=== PATIENT | female | born 1960 | race Caucasian/White ===

== ENCOUNTER 2022-11-01 08:21 | Day surgery (SDC) | payer BC ==
--- NOTE | 2022-10-23 15:00 | NUR ---
SPOKE WITH BOTH PT AND DR MONTOYA OFFICE REGARDING P/O PAIN MEDS AND NEED TO GET APPROVAL FROM PT'S PAIN [place], INFO GIVEN TO DR. Nick Salinas M.A. TO FOLLOW UP.
[2022-10-23 16:20] LABS: BASOPHILS % (AUTO) 0.5 % (0-1); BILIRUBIN,URINE NEGATIVE (Neg); CLARITY,URINE CLOUDY (Clear); COLOR,URINE YELLOW (Yellow); EOSINOPHILS # (AUTO) 0.1 X10'3 (0-0.9); EOSINOPHILS % (AUTO) 2.2 % (0-6); GLUCOSE, URINE NEGATIVE (Neg); KETONES,URINE NEGATIVE (Neg); LEUKOCYTE ESTERASE ,URINE MODERATE (Neg); LYMPHOCYTES # (AUTO) 2.1 X10'3 (1.1-4.8); LYMPHOCYTES % (AUTO) 32.6 % (21-51); MEAN CORPUSCULAR HEMOGLOBIN 28.6 PG (27.0-31.0); MEAN CORPUSCULAR HGB CONC 33.2 g/dL (33.0-36.5); MEAN CORPUSCULAR VOLUME 86.3 FL (78-98); MEAN PLATELET VOLUME 8.8 FL (7.4-10.4); MONOCYTES # (AUTO) 0.3 X10'3 (0-0.9); MONOCYTES % (AUTO) 5.3 % (2-12); NEUTROPHILS # (AUTO) 3.8 X10'3 (1.8-7.7); NEUTROPHILS % (AUTO) 59.4 % (42-75); NITRITES, URINE POSITIVE (Neg); OCCULT BLOOD,URINE TRACE-INTACT (Neg); PH,URINE 5.5 (4.8-8.0); PRE OP HEMATOCRIT 41.6 % (35.0-45.0); PRE OP HEMOGLOBIN 13.8 g/dL (12.0-16.0); PRE OP PLATELET COUNT 231 X10'3 (140-440); PRE OP WHITE BLOOD COUNT 6.3 10'3 (4.8-10.8); PROTEIN,URINE NEGATIVE (Neg); RED BLOOD COUNT 4.82 X10'6 (4.20-5.60); RED CELL DISTRIBUTION WIDTH 13.1 % (11.5-14.5); UROBILINOGEN,URINE 0.2 E.U/dL (0.2-1.0)
[2022-10-23 16:23] LABS: UA COLLECTION TYPE CLN CATCH MIDSTREAM
[2022-10-23 16:29] LABS: ALBUMIN 4.4 G/DL (3.4-5.0); ALBUMIN/GLOBULIN RATIO 1.2 (1.1-1.5); ALKALINE PHOSPHATASE 54 IU/L (46-116); BLOOD UREA NITROGEN 17 MG/DL (7-18); BUN/CREATININE RATIO 12.6 (10.0-20.0); CALCIUM 9.9 MG/DL (8.5-10.1); CHLORIDE 106 MMOL/L (99-107); CREATININE 1.35 MG/DL (0.40-0.90); PRE OP ALT 21 U/L (30-65); PRE OP ANION GAP 11 (8-16); PRE OP AST 15 U/L (10-37); PRE OP BILIRUB, TOTAL 0.5 MG/DL (0.0-1.0); PRE OP GLUCOSE 67 MG/DL (70-104); PRE OP POTASSIUM 4.3 MMOL/L (3.4-5.1); PRE OP SODIUM 143 MMOL/L (135-145); TOTAL CARBON DIOXIDE 26.3 MMOL/L (24-32); eGFR 40 ML/MIN
[2022-10-23 16:32] LABS: BACTERIA,URINE 4+ /HPF (Neg); SQUAMOUS EPITHELIAL CELL,UR FEW /LPF (FEW); WBC,URINE TNTC /HPF (0-4)
[2022-10-23 16:33] LABS: MUCUS STRANDS NONE SEEN /LPF (Neg); TRANSITIONAL EPI CELLS,URINE FEW /HPF
[2022-10-23 16:34] LABS: WBC CLUMPS,URINE FEW /HPF (NEGATIVE)
[~2022-11-01] VITALS: Ht 177.8 cm; Wt 98.0 kg
[2022-11-01] VITALS (19 sets, daily range): BP systolic 135–176; BP diastolic 64–85; PULSE 61–72; RESP 10–17; TEMP 98.5; O2SAT 92–99
[~2022-11-01 08:21] MED LIST: BUPR-317 PO; DOCU-148 PO; DOXE50CA4 PO; FENO160T PO; FLUO-167 PO; GABA600T13; METF-900 PO; OXYC10TA57 PO; OXYC15TA PO; PRAS25CA PO; PRAZ2CAP2 PO; PROG100C11 PO; PUMP300C PO; SITA100T11 PO; cefazolin 2gm/D5W 100mL 100 ML IV ONE; famotidine 20mg tablet PO ONE; ringers solution, lacted 1,000 ML IV SCH
[2022-11-01] MEDS ORDERED: morphine 4 MG/ML inj SYRINge IV PRN (09:55)
[2022-11-01] MEDS ORDERED: morphine 2 MG/ML inj. syringe IV PRN (09:55)
[2022-11-01] MEDS ORDERED: ondansetron/PF 4mg/2ml inj IV PRN (09:55)
[2022-11-01] MEDS ORDERED: ringers solution, lacted 1,000 ML IV SCH (09:55)
[2022-11-01] MEDS ORDERED: proCHLORperazine 10 MG/2 ml inj IV PRN (09:55)
[2022-11-01] MEDS ORDERED: meperidine/PF 25mg/ml syringe IV PRN ×2 (09:55)
[2022-11-01] MEDS ORDERED: rocuronium 10mg/ml inj IV ONE (11:32)
[2022-11-01] MEDS ORDERED: sevoflurane 250ml liquid IH ONE (11:32)
[2022-11-01] MEDS ORDERED: BUPIVAcaine/PF 2.5 mg/ml (0.25%) 30ml vial ONE (11:32)
[2022-11-01] MEDS ORDERED: LIDOcaine 2% (20mg/ml) 5ml vial ONE (11:32)
[2022-11-01] MEDS ORDERED: fentaNYL/PF 50MCG/1 ML 2ML syringe ONE (11:43)
[2022-11-01] MEDS ORDERED: midazolam 1 mg/ML 2ml injection ONE (11:44)
[2022-11-01] MEDS ORDERED: meperidine/PF 25mg/ml syringe ONE (11:44)
[2022-11-01] MEDS ORDERED: propofol inj 20 ML IV ONE (11:58)
[2022-11-01] MEDS ORDERED: dexamethasone sod phosphate 4mg/ml inj. ONE (11:58)
[2022-11-01] MEDS ORDERED: ondansetron/PF 4mg/2ml inj ONE (11:58)
[2022-11-01] MEDS ORDERED: ketorolac trometh. 30mg/ml inj. ONE (13:37)
--- NOTE | 2022-11-01 13:46 | NUR ---
Received from OR via [facility], accompanied by Anesthesiologist and report given by [facility] Anesthesiologist. PATIENT STILL SEDATED AND UNCONSCIOUS WITH ORAL, NO S/S OF PAIN, V/S WNL, SCD ON , PIV 20G RIGHT FOREARM, DERMABONDED LAPS SITES CLOSED C/D/I TO ABDOMEN. Addendum: 11/01/22 at 1410 by Carmelo Chairez RN Amended: Links added.
[2022-11-01] MEDS: meperidine/PF 25mg/ml syringe IV PRN ×3 (14:14→16:14)
[2022-11-01] MEDS ORDERED: acetaminophen 1,000mg/100ml IV 100 ML IV ONE (14:35)
--- NOTE | 2022-11-01 16:26 | NUR ---
ALL DISCHARGE CRITERIA HAS BEEN MET. VSS, PAIN AT A TOLERABLE LEVEL, VOIDING AND ABLE TO SAFELY AMBULATE AND TRANSFER SELF. IV TAKEN OUT WITHOUT ANY COMPLICATIONS. ALL DISCHARGE INSTRUCTIONS COVERED WITH PATIENT AND ALL QUESTIONS ANSWERED. PATIENT TAKEN OUT VIA WHEELCHAIR WITH ALL BELONGINGS TO PERSONAL VEHICLE WHERE FAMILY DROVE PATIENT HOME. Addendum: 11/01/22 at 1641 by Carmelo Chairez RN Amended: Links added.
== END 2022-11-01 16:26 | disposition home or self-care (01) ==
LOC: PAS 08:21
PROVIDERS: ATTEND Surgery
DX: K43.9 Ventral hernia without obstruction or gangrene (principal); F41.9 Anxiety disorder, unspecified; E78.5 Hyperlipidemia, unspecified; E11.40 Type 2 diabetes mellitus with diabetic neuropathy, unspecified; I10 Essential (primary) hypertension; E66.9 Obesity, unspecified; Z68.31 Body mass index [BMI] 31.0-31.9, adult; Z79.84 Long term (current) use of oral hypoglycemic drugs; Z79.899 Other long term (current) drug therapy; Z85.038 Personal history of other malignant neoplasm of large intestine; Z85.828 Personal history of other malignant neoplasm of skin; F10.91 Alcohol use, unspecified, in remission; F17.210 Nicotine dependence, cigarettes, uncomplicated; Z98.890 Other specified postprocedural states; Z80.52 Family history of malignant neoplasm of bladder; Z82.5 Family history of asthma and other chronic lower respiratory diseases
CPT/HCPCS: 36415; 49593; 80053; 81001; 82948; 85025; 87077; 87088; 87186; 93005; C1781; J0131; J0690; J1100; J1885; J2175; J2250; J2270; J2405; J2704; J3010; J3490; J7030; J7120; Z7506; Z7508; Z7512; 99153; A4618; A7000